=== PATIENT | male | born 1980 | race Caucasian/White ===

== ENCOUNTER 2017-04-17 19:15 | Emergency (ER) | payer OTHER ==
[~2017-04-17] VITALS: Ht 162.6 cm; Wt 79.0 kg
[2017-04-17] MEDS ORDERED: LISI1TAB5 PO (19:58)
[2017-04-17] MEDS ORDERED: BRIM5DRO2 OP (19:58)
[2017-04-17] MEDS ORDERED: AMLO5TAB2 PO (19:58)
[2017-04-17] MEDS ORDERED: SIMV20TA3 PO (19:58)
[2017-04-17] MEDS ORDERED: CARV12.543 PO (19:58)
[2017-04-17] MEDS ORDERED: SEVE800T8 PO (19:58)
[2017-04-17] MEDS ORDERED: GLIP5TAB10 PO (19:58)
[2017-04-17] MEDS ORDERED: BENZ-17 PO (19:58)
[2017-04-17] MEDS ORDERED: METH50TA3 PO (19:58)
[2017-04-17 21:01] VITALS: BP 123/85
== END 2017-04-17 21:29 | disposition home or self-care (01) ==
LOC: ED 21:23
DX: R05 Cough (principal); I12.0 Hypertensive chronic kidney disease with stage 5 chronic kidney disease or end stage renal disease; N18.6 End stage renal disease; E78.00 Pure hypercholesterolemia, unspecified; E11.9 Type 2 diabetes mellitus without complications; Z86.73 Personal history of transient ischemic attack (TIA), and cerebral infarction without residual deficits; Z99.2 Dependence on renal dialysis
CPT/HCPCS: 71045; 99283

== ENCOUNTER 2017-05-27 09:34 | Day surgery (SDC) | payer MEDICARE ==
[~2017-05-27] VITALS: Ht 162.6 cm; Wt 87.5 kg
[~2017-05-27 09:34] MED LIST: AMLO5TAB2 PO; BENZ-17 PO; BRIM5DRO2 OP; CARV12.543 PO; GLIP5TAB10 PO; HEPARIN 1,000 UNITS/ML, 10ML ONE; LISI1TAB5 PO; METH50TA3 PO; PROTAMINE SULFATE 10 MG/ML, 5ML ONE; SEVE800T8 PO; SIMV20TA3 PO
[2017-05-27 11:23] VITALS: BP 125/77
[2017-05-27 12:07] LABS: INTERNATIONAL NORMALIZED RATIO 0.98 (0.93-1.1); PROTHROMBIN TIME 10.2 Seconds (9.6-11.5)
[2017-05-27] MEDS ORDERED: MIDAZOLAM 1 MG/ML, 2ML ONE (13:07)
[2017-05-27] MEDS ORDERED: FENTANYL PF 250 MCG/5ML ONE (13:07)
[2017-05-27] MEDS ORDERED: SODIUM CHLORIDE 0.9% PF 10ML ONE (13:08)
[2017-05-27] MEDS ORDERED: CEFAZOLIN 1,000 MG ONE ×2 (13:08)
[2017-05-27] MEDS ORDERED: PROPOFOL 10 MG/ML, 20ML ONE (13:08)
[2017-05-27] MEDS ORDERED: OXYcodone 5 MG/5 ML ORAL.SOL UDC PO PRN (14:00)
[2017-05-27] MEDS ORDERED: LABETALOL 5MG/ML, 20ML IV PRN (14:00)
[2017-05-27] MEDS ORDERED: PROMETHAZINE 25 MG/ML, 1ML IV PRN (14:00)
[2017-05-27] MEDS ORDERED: FENTANYL PF 100 MCG/2ML IV PRN (14:00)
[2017-05-27] MEDS ORDERED: HYDROmorphone 1 MG/ML, 1ML IV PRN (14:00)
[2017-05-27] MEDS ORDERED: ONDANSETRON 2MG/ML, 2ML IVPush PRN (14:00)
[2017-05-27] MEDS ORDERED: morphine SULFATE 10 MG/ML, 1ML IV PRN (14:00)
[2017-05-27] MEDS ORDERED: hydrALAzine 20 MG/ML, 1ML IV PRN (14:00)
[2017-05-27] MEDS ORDERED: PROMETHAZINE 12.5 MG SUPP PR PRN (14:00)
[2017-05-27] MEDS ORDERED: ACETAMINOPHEN 325 MG TABLET PO PRN (14:00)
[2017-05-27] MEDS ORDERED: OXYcodone 5 MG/5 ML ORAL.SOL UDC ONE (15:21)
[2017-05-27] MEDS ORDERED: ACETAMINOPHEN 650 MG/20.3 ML UDC ONE (15:21)
[2017-05-27] MEDS ORDERED: HEPARIN 1,000 UNITS/ML, 10ML PERMACATH ONE (16:00)
== END 2017-05-27 17:45 ==
LOC: OUT 09:34
PROVIDERS: ATTEND Surgery Vascular Surgery
DX: I12.0 Hypertensive chronic kidney disease with stage 5 chronic kidney disease or end stage renal disease (principal); E11.22 Type 2 diabetes mellitus with diabetic chronic kidney disease; N18.6 End stage renal disease; E78.5 Hyperlipidemia, unspecified
CPT/HCPCS: 36415; 36821; 80047; 85610; 85730; J0690; J1644; J2250; J2704; J3010; J2720

== ENCOUNTER 2020-07-30 20:06 | Emergency (ER) | payer MEDICARE, OTHER ==
[~2020-07-30] VITALS: Ht 162.6 cm; Wt 99.7 kg
[~2020-07-30 20:06] MED LIST changes: +AMLO-150 PO; -AMLO5TAB2 PO; -HEPARIN 1,000 UNITS/ML, 10ML ONE; +LISI1TAB39 PO; -LISI1TAB5 PO; -PROTAMINE SULFATE 10 MG/ML, 5ML ONE; +SIMV20TA19 PO; -SIMV20TA3 PO
[2020-07-30 20:16] VITALS: BP 190/92
--- NOTE | 2020-07-30 20:24 | NUR ---
REVENUE MANAGER AWARE OF PT, BROUGHT BACK TO ROOM IMMEDIATELY.
--- NOTE | 2020-07-30 20:39 | NUR ---
ERP TO SEE AT THIS TIME FOR EVAL AND POC
--- NOTE | 2020-07-30 20:46 | NUR ---
pt kana/sukhdeep, was at bedside, MD stated pt has bells palsy, this RN completed neuro check and only thing was noted was right sided facial weakness
--- NOTE | 2020-07-30 21:07 | NUR ---
pt a/ox4, NAD, pt given eye patch, script given, pts blood pressure is elevated, MD notified, pt instructed to go home and take blood pressure meds.
== END 2020-07-30 21:15 | disposition home or self-care (01) ==
LOC: ED 21:00
DX: G51.0 Bell's palsy (principal); I10 Essential (primary) hypertension; E11.9 Type 2 diabetes mellitus without complications; E78.00 Pure hypercholesterolemia, unspecified; Z86.73 Personal history of transient ischemic attack (TIA), and cerebral infarction without residual deficits
CPT/HCPCS: 99283; J7512